=== PATIENT | male | born 1990 | race Caucasian/White ===

== ENCOUNTER 2020-04-14 07:04 | Outpatient (CLI) | payer BC, OTHER ==
[2020-04-15 12:01] LABS: SARS-CoV-2 MS2 Positive; SARS-CoV-2 N Gene Negative; SARS-CoV-2 S Gene Negative; SARS-CoV-2 by NAA Not Detected (NotDetected); SARS-CoV-2 orf1ab Negative
== END 2020-04-14 07:05 | disposition home or self-care (01) ==
LOC: LABBT 07:04
PROVIDERS: ATTEND Otolaryngology Plastic Surgery within the Head & Neck
DX: J32.0 Chronic maxillary sinusitis (principal); J32.1 Chronic frontal sinusitis; J34.2 Deviated nasal septum; J33.9 Nasal polyp, unspecified; J32.3 Chronic sphenoidal sinusitis; J32.2 Chronic ethmoidal sinusitis; J34.3 Hypertrophy of nasal turbinates; J34.89 Other specified disorders of nose and nasal sinuses; Z20.828 Contact with and (suspected) exposure to other viral communicable diseases
CPT/HCPCS: 87635; U0003

== ENCOUNTER 2020-04-19 06:38 | Day surgery (SDC) | payer BC ==
[2020-04-17 12:06] VITALS: BMI 23.1
[2020-04-19] MEDS ORDERED: AFRIN NASAL MIST 15 ML BOT ONE ×2 (07:22→08:30)
[2020-04-19] MEDS ORDERED: Bacitracin Zinc Ointment 30 gm TUBE ONE (08:30)
[2020-04-19] MEDS ORDERED: Lidocaine 1% w/Epinephrine 1:100K 20 ML VIAL ONE (08:30)
[2020-04-19] MEDS ORDERED: Fentanyl 100 MCG/2 ML VIAL ONE ×3 (08:32→10:58)
[2020-04-19] MEDS ORDERED: Lidocaine 1% PF 5 ML VIAL ONE (09:08)
[2020-04-19] MEDS ORDERED: PROPOFOL 200 MG/20 ML VIAL ONE (09:08)
[2020-04-19] MEDS ORDERED: Labetalol HCl 100 MG/20 ML VIAL ONE (09:08)
[2020-04-19] MEDS ORDERED: Dexamethasone 20 MG/5 ML VIAL ONE (09:08)
[2020-04-19] MEDS ORDERED: Rocuronium Bromide 10 MG/ML (10ML VIAL) ONE (09:08)
[2020-04-19] MEDS ORDERED: Succinylcholine Chloride 20 MG/ML 10 ml SYRINGE FS ONE (09:08)
[2020-04-19] MEDS ORDERED: Ondansetron PF 4 MG/2 ML Vial ONE (09:08)
[2020-04-19] MEDS ORDERED: HYDROcodone/Acetaminophen 5/325 mg Tablet ONE (12:28)
--- NOTE | 2020-04-20 12:25 | OP ---
DATE OF PROCEDURE: 04/19/2020 PREOPERATIVE DIAGNOSES: 1. Chronic rhinosinusitis. 2. Nasal polyposis. 3. Nasal septal deviation. 4. Bilateral inferior turbinate hypertrophy. 5. Bilateral lateral nasal wall collapse and nasal obstruction. POSTOPERATIVE DIAGNOSES: 1. Chronic rhinosinusitis. 2. Nasal polyposis. 3. Nasal septal deviation. 4. Bilateral inferior turbinate hypertrophy. 5. Bilateral lateral nasal wall collapse and nasal obstruction. PROCEDURES PERFORMED: 1. Bilateral endoscopic sinus surgery, total ethmoidectomies with sphenoidotomies including removal of tissue. 2. Bilateral endoscopic sinus surgery, maxillary antrostomies with removal of tissue. 3. Bilateral endoscopic sinus surgery, frontal sinus exploration with removal of tissue. 4. Nasoseptoplasty. 5. Bilateral inferior turbinate submucosal resection. 6. Repair of bilateral nasal wall collapse. 7. Serstech image-guided surgical system set up, calibration and usage. ESTIMATED BLOOD LOSS: 50 mL. COMPLICATIONS: None. ANESTHESIA: GETA. PROCEDURE IN DETAIL: Patient was taken to the operating room and placed supine on the table. General endotracheal anesthesia was obtained by the anesthesia staff. Then 1% lidocaine with 1:100,000 epinephrine was injected into the nasal septum as well as the inferior turbinates. The patient was prepped and draped in standard surgical fashion. The Afrin pledgets were then removed. A Paul incision was made on the left nasal septum. Submucoperichondrial dissection was performed bilaterally of the deviated portions of the septum, which included the maxillary crest and the crest deviation, as well as the mid portion of the septum. Cartilage and bony deviation was removed, leaving a generous caudal and dorsal strut. Any straight pieces of cartilage were then placed within the cartilage press, pressed, straightened, and then placed between the mucoperichondrial flaps, which were then closed using a 4-0 gut stitch. The inferior turbinates were then punctured with the submucosal Coblation machine, and 3 separate coblations were delivered to the anterior inferior portion of the inferior turbinates. Following this, the nasal cavity was irrigated. All debris was removed. An orogastric tube was placed. Gastric contents and Webb splints were then placed in the nasal cavity and sutured with a 3-0 silk stitch. Following this, the Serstech image-guided system was then set up and calibrated. It was noted to be within 1 mm of accuracy bilaterally. The 0-degree microdebrider was then advanced to the middle meatus. The middle turbinates were gently medialized bilaterally. The uncinate process was identified and was anteriorly fractured using a ball-ended probe bilaterally and then was removed using the 0-degree microdebrider and up-biting Blakesley forceps bilaterally. Following this, the natural maxillary sinus ostia was identified and was gently widened using a 40-degree microdebrider blade and straight Blakesley forceps bilaterally. Following this, the natural maxillary sinus ostia was identified and the 40-degree microdebrider blade and straight Blakesley forceps were used to widen the maxillary sinus ostia bilaterally. Nasal polyps were removed from within the maxillary sinus bilaterally. Following this, the ethmoidal bulla was identified and was punctured on its medial and inferior aspect with the 0-degree microdebrider bilaterally. The ethmoidal bulla was removed using the microdebrider and the up-biting Blakesley forceps. Following this, the grand lamella was identified and was punctured into the posterior ethmoidal cells. Working from posterior to anterior, the ethmoidal cells were opened in a mucosal sparing technique, using the image-guided system and calibrated instruments. The nasal polyps and purulent debris were suctioned from the nasal cavity bilaterally. Allergic fungal debris was encountered in the ethmoidal sinuses and the maxillary sinuses . Following this, the image-guided system and a 0-degree Lindsay tip suction was used to identify the anterior wall of the sphenoid sinus. A sphenoidotomy was created and was widened in a medial and inferior direction using the 0-degree microdebrider under image-guided surveillance bilaterally. Thick polyps were removed as well as fungal debris from the sphenoid sinuses bilaterally. Following this, 45-degree endoscope along with 40-degree microdebrider blade were used to further open the anterior ethmoidal cells exposing the frontal sinus ostia bilaterally. Using the image-guided system, the frontal sinus ostia and frontal sinus recess were opened and widened and nasal polyps removed from this area. Following this, an approach to the lateral nasal wall was made through a transcartilaginous incision with 11 blade and a subperiosteal pocket was made overlying the lateral nasal bones bilaterally. Following this, a small submucosal pocket was made in an underlay fashion on the lower lateral cartilages bilaterally. The graft was placed in this area to support the lateral wall collapse and help open the nasal valve. The incision was then closed using a 6-0 chromic gut stitch. Following this, nasal cavity was irrigated. NasoPore packing was placed within the middle meatus. PROPEL frontal sinus stents were placed within the frontal sinus ostia bilaterally. Webb splints were placed and secured. Job ID: [id number]
== END 2020-04-19 12:55 | disposition home or self-care (01) ==
LOC: SDC 06:38
PROVIDERS: ATTEND Otolaryngology Plastic Surgery within the Head & Neck
PROC: 09BS8ZZ Excision of Right Frontal Sinus, Via Natural or Artificial Opening Endoscopic (ICD-10-PCS; principal; 2020-04-19)
PROC: 09BT8ZZ Excision of Left Frontal Sinus, Via Natural or Artificial Opening Endoscopic (ICD-10-PCS; principal; 2020-04-19)
PROC: 8E09XBZ Computer Assisted Procedure of Head and Neck Region (ICD-10-PCS; principal; 2020-04-19)
PROC: 099R8ZZ Drainage of Left Maxillary Sinus, Via Natural or Artificial Opening Endoscopic (ICD-10-PCS; principal; 2020-04-19)
PROC: 09BV8ZZ Excision of Left Ethmoid Sinus, Via Natural or Artificial Opening Endoscopic (ICD-10-PCS; principal; 2020-04-19)
PROC: 09BU8ZZ Excision of Right Ethmoid Sinus, Via Natural or Artificial Opening Endoscopic (ICD-10-PCS; principal; 2020-04-19)
PROC: 099Q8ZZ Drainage of Right Maxillary Sinus, Via Natural or Artificial Opening Endoscopic (ICD-10-PCS; principal; 2020-04-19)
PROC: 099W8ZZ Drainage of Right Sphenoid Sinus, Via Natural or Artificial Opening Endoscopic (ICD-10-PCS; principal; 2020-04-19)
PROC: 099X8ZZ Drainage of Left Sphenoid Sinus, Via Natural or Artificial Opening Endoscopic (ICD-10-PCS; principal; 2020-04-19)
PROC: 09BM8ZZ Excision of Nasal Septum, Via Natural or Artificial Opening Endoscopic (ICD-10-PCS; principal; 2020-04-19)
PROC: 09BL8ZZ Excision of Nasal Turbinate, Via Natural or Artificial Opening Endoscopic (ICD-10-PCS; principal; 2020-04-19)
DX: J32.4 Chronic pansinusitis (principal); J33.9 Nasal polyp, unspecified; J34.2 Deviated nasal septum; J34.3 Hypertrophy of nasal turbinates; J34.89 Other specified disorders of nose and nasal sinuses; J45.909 Unspecified asthma, uncomplicated
CPT/HCPCS: 88304; C2625; J1100; J2405; J2704; J3010